=== PATIENT | female | born 1955 | race Caucasian/White ===

== ENCOUNTER → 2017-01-21 | Outpatient (CLI) | payer OTHER | LOC: HEART 5 14:50 | DX: J44.9 Chronic obstructive pulmonary disease, unspecified (principal); F17.210 Nicotine dependence, cigarettes, uncomplicated; R94.2 Abnormal results of pulmonary function studies | CPT/HCPCS: 94060; 94729 ==

== ENCOUNTER → 2017-02-05 | Outpatient (CLI) | payer OTHER | LOC: CT 15:26 | DX: Z87.891 Personal history of nicotine dependence (principal); Z72.821 Inadequate sleep hygiene; R91.1 Solitary pulmonary nodule | CPT/HCPCS: 71020; G0297 ==

== ENCOUNTER → 2017-03-28 | Outpatient (CLI) | payer OTHER | LOC: SLEEP-COR 21:30 | DX: G47.33 Obstructive sleep apnea (adult) (pediatric) (principal) | CPT/HCPCS: 95811 ==

== ENCOUNTER → 2017-08-10 | Outpatient (CLI) | payer OTHER | LOC: CT 13:00 | DX: J44.9 Chronic obstructive pulmonary disease, unspecified (principal); R91.1 Solitary pulmonary nodule | CPT/HCPCS: 71250 ==